=== PATIENT | female | born 1935 | race Caucasian/White ===

== ENCOUNTER 2021-12-28 12:35 | Emergency (ER) | payer MEDICARE, OTHER ==
[~2021-12-28] VITALS: Ht 170.2 cm; Wt 97.5 kg
--- NOTE | 2021-12-28 12:50 | NUR ---
Patient BIB family member c/o acute urinary retention, since yesterday- urine just drops. Patient placed in gown. Awaiting to be seen by .
--- NOTE | 2021-12-28 13:10 | NUR ---
INDWELLING SORENSEN INSERTED, 16FR CATH. UA COLLECTED AND SENT TO LAB.
[2021-12-28 13:42] LABS: BASOPHILS % (AUTO) 0.1 % (0.0-2.0); EOSINOPHILS % (AUTO) 0.1 % (0.0-6.0); HEMATOCRIT 33 % (33-45); LYMPHOCYTES # (AUTO) 1.5 K/uL (0.8-4.8); LYMPHOCYTES % (AUTO) 23.9 % (20.0-44.0); MEAN CORPUSCULAR HGB CONC 33 g/dl (31.0-36.0); MEAN CORPUSCULAR VOLUME 80 fL (82-100); MONOCYTES # (AUTO) 0.6 K/uL (0.1-1.30); MONOCYTES % (AUTO) 8.8 % (2.0-12.0); NEUTROPHILS # (AUTO) 4.3 K/uL (1.8-8.9); NEUTROPHILS % (AUTO) 67.1 % (43.0-81.0); PLATELET COUNT (AUTO) 206 K/uL (150-450); RED BLOOD CELL COUNT(AUTO) 4.19 MIL/uL (4.0-5.2); WHITE BLOOD COUNT (AUTO) 6.5 K/uL (4.3-11.0)
[2021-12-28 13:46] LABS: BILIRUBIN,URINE NEGATIVE (NEGATIVE); COLOR,URINE YELLOW (YELLOW); LEUKOCYTE ESTERASE ,URINE NEGATIVE (NEGATIVE); NITRITE, URINE NEGATIVE (NEGATIVE); PH,URINE 5.5 (5.0-8.0); PROTEIN,URINE NEGATIVE (NEGATIVE); UGLUCOSE >=1000 mg/dL (NEGATIVE); UROBILINOGEN,URINE 0.2 EU/dL (0.2)
[2021-12-28 13:49] LABS: CALCIUM, SERUM 9.7 mg/dL (8.5-10.1); CARBON DIOXIDE 30 mmol/L (21-32); CHLORIDE 104 mmol/L (98-107); CREATININE 1.3 mg/dL (0.6-1.3); GLUCOSE 87 mg/dL (74-106); POTASSIUM 4.6 mmol/L (3.5-5.1); SODIUM SERUM 140 mmol/L (136-145); UREA NITROGEN, BLOOD 34 mg/dL (7-18)
[2021-12-28 14:17] LABS: BACTERIA,URINE Rare /HPF (None Seen); SQUAMOUS EPITHELIAL CELL,UR Moderate /HPF (None Seen); WBC,URINE 0-2 /HPF (0-3)
--- NOTE | 2021-12-28 14:24 | NUR ---
Patient discharged to home in stable condition. Written and verbal after care instructions given. Patient verbalizes understanding of instruction.
[2021-12-28 14:26] VITALS: BP 130/75
== END 2021-12-28 14:27 | disposition home or self-care (01) ==
LOC: ER 12:50
DX: R39.198 Other difficulties with micturition (principal); I10 Essential (primary) hypertension; I48.20 Chronic atrial fibrillation, unspecified; E11.9 Type 2 diabetes mellitus without complications
CPT/HCPCS: 36415; 80048-TC; 81001; 85025-TC

== ENCOUNTER 2023-02-14 10:08 | Inpatient (IN) | payer MEDICARE, OTHER ==
[~2023-02-14] VITALS: Ht 162.6 cm; Wt 84.4 kg
[2023-02-14 10:33] LABS: EOSINOPHILS % (AUTO) 0.1 % (0.0-6.0); HEMATOCRIT 34 % (33-45); HEMOGLOBIN 11.4 g/dL (11.5-14.8); LYMPHOCYTES # (AUTO) 1.4 K/uL (0.8-4.8); LYMPHOCYTES % (AUTO) 24.8 % (20.0-44.0); MEAN CORPUSCULAR HEMOGLOBIN 28 PG (26.0-33.0); MEAN CORPUSCULAR HGB CONC 34 g/dl (31.0-36.0); MEAN CORPUSCULAR VOLUME 82 fL (82-100); MONOCYTES # (AUTO) 0.3 K/uL (0.1-1.30); MONOCYTES % (AUTO) 6.1 % (2.0-12.0); NEUTROPHILS # (AUTO) 3.8 K/uL (1.8-8.9); PLATELET COUNT (AUTO) 169 K/uL (150-450); RED BLOOD CELL COUNT(AUTO) 4.09 MIL/uL (4.0-5.2); RED CELL DISTRIBUTION WIDTH 14.6 % (11.5-15.0); WHITE BLOOD COUNT (AUTO) 5.5 K/uL (4.3-11.0)
[2023-02-14 10:46] LABS: CALCIUM, SERUM 9.4 mg/dL (8.5-10.1); CARBON DIOXIDE 24 mmol/L (21-32); CHLORIDE 109 mmol/L (98-107); CREATININE 1.2 mg/dL (0.6-1.3); GLUCOSE 115 mg/dL (74-106); POTASSIUM 4.4 mmol/L (3.5-5.1); SODIUM SERUM 143 mmol/L (136-145); UREA NITROGEN, BLOOD 32 mg/dL (7-18)
[2023-02-14] MEDS ORDERED: APIX5TAB PO (11:58)
[2023-02-14] MEDS ORDERED: GLIM2TAB31 PO (11:58)
[2023-02-14] MEDS ORDERED: GABA300C PO (11:58)
[2023-02-14] MEDS ORDERED: DULA0.75 SQ (11:58)
[2023-02-14] MEDS ORDERED: COLC0.6T67 PO (11:58)
[2023-02-14] MEDS ORDERED: ERGO500093 PO (11:58)
[2023-02-14] MEDS ORDERED: DAPA10TA PO (11:58)
[2023-02-14] MEDS ORDERED: MONT10TA22 PO (11:58)
[2023-02-14] MEDS ORDERED: ZOLP5TAB8 PO (11:58)
[2023-02-14] MEDS ORDERED: ALBU18HF2 IH (11:58)
[2023-02-14] MEDS ORDERED: CARV6.252 PO (11:58)
[2023-02-14] MEDS ORDERED: JANUMET XR PO (11:58)
[2023-02-14] MEDS ORDERED: CETI10TA14 PO (11:58)
[2023-02-14] MEDS ORDERED: NIFE-34 PO (11:58)
[2023-02-14] MEDS ORDERED: LOSA1TAB39 PO (11:58)
[2023-02-14] MEDS ORDERED: CLON1PAT13 TP (11:58)
[2023-02-14] MEDS ORDERED: REPA1TAB7 PO (11:58)
[2023-02-14] MEDS ORDERED: CLONIDINE HCL 0.2MG/24H PTWK 1 EA PATCH TD PRN (14:00)
[2023-02-14] MEDS ORDERED: ONDANSETRON HCL/PF 4 MG/2 ML VIAL IVP PRN (14:00)
[2023-02-14] MEDS ORDERED: ACETAMINOPHEN 325 MG TABLET PO PRN (14:00)
[2023-02-14] MEDS ORDERED: Z GUARD REMEDY 4 OZ OINT TP PRN (14:00)
[2023-02-14] MEDS ORDERED: IV NS 0.9% 1,000 ML IV PRN (14:00)
[2023-02-14] MEDS ORDERED: ALBUTEROL FS 2.5 MG/3 ML VIAL.NEB NEB PRN (14:30)
[2023-02-14] MEDS: SORBITOL SOLUTION 70% 30 ML SOLUTION PO SCH ×2 (14:45→17:22)
[2023-02-14] MEDS: LACTULOSE 10 G/15 ML UDC (PYXIS) PO SCH ×2 (14:45→20:15)
[2023-02-14 14:56] LABS: THYROID STIMULATING HORMONE 2.683 uIU/mL (0.358-3.74)
[2023-02-14 16:00] VITALS: BP 148/69; TEMP 97.6
[2023-02-14] MEDS: CARVEDILOL 6.25 MG TABLET PO SCH (17:22)
[2023-02-14] MEDS: APIXABAN 5 MG TABLET PO SCH (17:38)
[2023-02-14] MEDS ORDERED: GABAPENTIN 300 MG CAPSULE PO SCH (18:00)
[2023-02-14] MEDS ORDERED: MONTELUKAST SODIUM (10MG) 10 MG TABLET PO SCH (18:00)
[2023-02-14 20:00] VITALS: BP 139/76; TEMP 98.1; O2SAT 97
[2023-02-15] VITALS: BP 121/67; TEMP 97.8; O2SAT 95
[2023-02-15] MEDS: LACTULOSE 10 G/15 ML UDC (PYXIS) PO SCH ×3 (02:27→09:33)
[2023-02-15 04:00] VITALS: BP 123/70; TEMP 98.4; O2SAT 97
[2023-02-15 07:12] LABS: EOSINOPHILS % (AUTO) 0.1 % (0.0-6.0); HEMATOCRIT 31 % (33-45); HEMOGLOBIN 10.2 g/dL (11.5-14.8); LYMPHOCYTES # (AUTO) 1.6 K/uL (0.8-4.8); LYMPHOCYTES % (AUTO) 29.8 % (20.0-44.0); MEAN CORPUSCULAR HEMOGLOBIN 27 PG (26.0-33.0); MEAN CORPUSCULAR HGB CONC 33 g/dl (31.0-36.0); MEAN CORPUSCULAR VOLUME 83 fL (82-100); MONOCYTES # (AUTO) 0.4 K/uL (0.1-1.30); MONOCYTES % (AUTO) 7.4 % (2.0-12.0); NEUTROPHILS # (AUTO) 3.4 K/uL (1.8-8.9); NEUTROPHILS % (AUTO) 62.7 % (43.0-81.0); PLATELET COUNT (AUTO) 150 K/uL (150-450); RED BLOOD CELL COUNT(AUTO) 3.77 MIL/uL (4.0-5.2); RED CELL DISTRIBUTION WIDTH 14.6 % (11.5-15.0); WHITE BLOOD COUNT (AUTO) 5.4 K/uL (4.3-11.0)
[2023-02-15 07:17] LABS: CALCIUM, SERUM 9.5 mg/dL (8.5-10.1); CARBON DIOXIDE 22 mmol/L (21-32); CHLORIDE 112 mmol/L (98-107); GLUCOSE 118 mg/dL (74-106); PHOSPHORUS 3.2 mg/dL (2.5-4.9); POTASSIUM 4.3 mmol/L (3.5-5.1); SODIUM SERUM 144 mmol/L (136-145); UREA NITROGEN, BLOOD 25 mg/dL (7-18)
[2023-02-15 07:26] LABS: MAGNESIUM 2.1 mg/dL (1.8-2.4)
[2023-02-15 08:00] VITALS: BP 149/69; TEMP 98.2; O2SAT 97
[2023-02-15 08:43] VITALS: BP 149/69
[2023-02-15] MEDS: CARVEDILOL 6.25 MG TABLET PO SCH (08:43)
[2023-02-15] MEDS: APIXABAN 5 MG TABLET PO SCH (08:45)
[2023-02-15] MEDS: SORBITOL SOLUTION 70% 30 ML SOLUTION PO SCH (08:45)
[2023-02-15] MEDS ORDERED: GLIMEPIRIDE 1 MG TABLET PO SCH (09:00)
[2023-02-15] MEDS ORDERED: NIFEDIPINE XL 60 MG TAB.ER.24 PO SCH (09:00)
[2023-02-15] MEDS ORDERED: COLCHICINE 0.6 MG TABLET PO SCH (09:00)
[2023-02-15] MEDS ORDERED: LINAGLIPTIN 5 MG TABLET PO SCH (16:00)
== END 2023-02-15 14:00 | disposition home or self-care (01) | DRG 556 ==
LOC: ER 10:12 → TELE 12:37 → MED 02-15 12:27
PROVIDERS: ADMIT Nurse Practitioner Acute Care; ATTEND Nurse Practitioner Acute Care
DX: M62.838 Other muscle spasm (principal); D68.59 Other primary thrombophilia; I48.91 Unspecified atrial fibrillation; K59.09 Other constipation; I10 Essential (primary) hypertension; R79.89 Other specified abnormal findings of blood chemistry; E78.5 Hyperlipidemia, unspecified; E11.9 Type 2 diabetes mellitus without complications; Z79.01 Long term (current) use of anticoagulants; Z79.51 Long term (current) use of inhaled steroids; Z79.84 Long term (current) use of oral hypoglycemic drugs; Z79.899 Other long term (current) drug therapy; Z90.710 Acquired absence of both cervix and uterus; E66.9 Obesity, unspecified; Z68.31 Body mass index [BMI] 31.0-31.9, adult
CPT/HCPCS: 36415; 71045-TC; 80048-TC; 80061-TC; 83735-TC; 84100-TC; 84443-TC; 84484-TC; 85025-TC; 87081-TC; 93307-TC; A4223; G0378; J7030